=== PATIENT | female | born 1970 | race Caucasian/White ===

== ENCOUNTER 2022-08-05 12:48 | Observation (INO) | payer OTHER ==
[2022-08-05] MEDS ORDERED: ONDANSETRON 4 MG/2 ML VIAL IVPUSH ONE ×2 (13:28→17:53)
[2022-08-05] MEDS ORDERED: SODIUM CHLORIDE 1,000 ML IV STA ×3 (13:28→16:24)
[2022-08-05] MEDS ORDERED: ONDANSETRON 4 MG/2 ML VIAL ONE ×2 (13:45→17:59)
[2022-08-05 14:09] LABS: EPITHELIAL CELLS MODERATE /hpf
[2022-08-05 14:09] LABS: HEMATOCRIT 37.2 % (32.4-45.2); HEMOGLOBIN 12.4 G/dL (10.7-15.3); MCH 27.1 pg (25.7-33.7); MCHC 33.3 g/dl (32.0-36.0); MEAN CELL VOLUME 81.4 fl (80-96); MEAN PLT VOLUME 11.3 fl (7.5-11.1); PLATELET COUNT 121.3 10^3/uL (134-434); RBC 4.57 10^6/uL (3.60-5.2); RDW 14.9 % (11.6-15.6); WHITE BLOOD COUNT 7.3 10^3/uL (4.0-10.8)
[2022-08-05 14:16] LABS: ALBUMIN 3.6 g/dl (3.4-5.0); BILIRUBIN,TOTAL 0.6 mg/dl (0.2-1); CALCIUM 8.2 mg/dl (8.5-10); TOT PROT 6.7 g/dl (6.4-8.2)
[2022-08-05] MEDS ORDERED: POTASSIUM CHLORIDE ORAL LIQUID 20 MEQ/15 ML PO ONE (14:19)
[2022-08-05] MEDS ORDERED: INSULIN REGULAR HUMAN 100 UNITS/ML *VIAL SQ ONE (14:19)
[2022-08-05] MEDS ORDERED: POTASSIUM CHLORIDE ORAL LIQUID 20 MEQ/15 ML ONE (14:43)
[2022-08-05] MEDS ORDERED: INSULIN REGULAR HUMAN 100 UNITS/ML *VIAL ONE (14:44)
[2022-08-05] MEDS ORDERED: SULFAMETHOXAZOLE/TRIMETHOPRIM 800MG/160MG D.S. TABLET PO ONE (15:10)
[2022-08-05] MEDS ORDERED: SULFAMETHOXAZOLE/TRIMETHOPRIM 800MG/160MG D.S. TABLET ONE (15:18)
[2022-08-05] MEDS ORDERED: ACETAMINOPHEN 1000 MG/100 ML BAG IVPB ONE (16:24)
[2022-08-05] MEDS ORDERED: ACETAMINOPHEN INJECTION 100 ML IVPB ONE (16:34)
[2022-08-05] MEDS ORDERED: KETOROLAC TROMETHAMINE 15 MG/ML VIAL IVPUSH ONE (20:25)
[2022-08-05] MEDS: CEFTRIAXONE 1 GM in DEXTROSE 5%-WATER - 50 ML IVPB SCH (20:57)
[2022-08-05] MEDS: SODIUM CHLORIDE 1,000 ML IV SCH (20:57)
[2022-08-05 21:51] LABS: CALCIUM 8.1 mg/dl (8.5-10); CREATININE 0.7 mg/dl (0.55-1.3); MAGNESIUM 1.4 mg/dL (1.8-2.4); PHOSPHOROUS 2.7 mg/dl (2.5-4.9); POTASSIUM 3.9 mmol/L (3.5-5.1)
[2022-08-05] MEDS: INSULIN SLIDING SCALE (NOVOLOG) 1 VIAL SQ SCH (22:04)
[2022-08-05 22:16] VITALS: BMI 29.4
[2022-08-06] MEDS: ACETAMINOPHEN 1000 MG/100 ML BAG IVPB PRN ×3 (01:10→15:50)
[2022-08-06] MEDS: INSULIN SLIDING SCALE (NOVOLOG) 1 VIAL SQ SCH ×6 (02:00→21:13)
[2022-08-06 08:23] LABS: CALCIUM 7.6 mg/dl (8.5-10); CREATININE 0.7 mg/dl (0.55-1.3); POTASSIUM 3.5 mmol/L (3.5-5.1)
[2022-08-06 09:20] LABS: HEMATOCRIT 31.1 % (32.4-45.2); HEMOGLOBIN 10.4 GM/dL (10.7-15.3); MCH 26.1 pg (25.7-33.7); MCHC 33.3 g/dl (32.0-36.0); MEAN CELL VOLUME 78.6 fl (80-96); MEAN PLT VOLUME 10.2 fl (7.5-11.1); PLATELET COUNT 84 10^3/uL (134-434); RBC 3.96 M/mm3 (3.60-5.2); RDW 14.4 % (11.6-15.6); WHITE BLOOD COUNT 12.3 K/mm3 (4.0-10.0)
[2022-08-06] MEDS: CEFTRIAXONE 1 GM in DEXTROSE 5%-WATER - 50 ML IVPB SCH (10:13)
[2022-08-06] MEDS: ONDANSETRON 4 MG/2 ML VIAL IVPUSH PRN ×2 (15:55→21:07)
[2022-08-06] MEDS: SODIUM CHLORIDE 1,000 ML IV SCH (21:12)
[2022-08-07] MEDS: ACETAMINOPHEN 325 MG TABLET (FP) PO PRN ×4 (01:15→22:00)
[2022-08-07] MEDS ORDERED: IBUPROFEN 800 MG/8 ML IJ IVPB ONE (03:00)
[2022-08-07] MEDS: ONDANSETRON 4 MG/2 ML VIAL IVPUSH PRN ×3 (03:22→18:57)
[2022-08-07] MEDS: INSULIN SLIDING SCALE (NOVOLOG) 1 VIAL SQ SCH ×4 (06:42→22:44)
[2022-08-07 08:24] LABS: HEMATOCRIT 33.8 % (32.4-45.2); HEMOGLOBIN 11.1 G/dL (10.7-15.3); MCH 26.7 pg (25.7-33.7); MCHC 32.8 g/dl (32.0-36.0); MEAN CELL VOLUME 81.5 fl (80-96); MEAN PLT VOLUME 11.5 fl (7.5-11.1); PLATELET COUNT 91.2 10^3/uL (134-434); RBC 4.15 10^6/uL (3.60-5.2); RDW 15.6 % (11.6-15.6); WHITE BLOOD COUNT 8.2 10^3/uL (4.0-10.8)
[2022-08-07 08:38] LABS: CALCIUM 7.7 mg/dl (8.5-10); CREATININE 0.6 mg/dl (0.55-1.3); POTASSIUM 3.2 mmol/L (3.5-5.1)
[2022-08-07] MEDS ORDERED: CEFTRIAXONE 2 GM in DEXTROSE 5%-WATER 100 ML IVPB SCH (10:00)
[2022-08-07] MEDS ORDERED: POTASSIUM CHLORIDE TABS 10 MEQ TABLET.ER (FP) PO ONE (11:00)
[2022-08-07] MEDS: ERTAPENEM SODIUM 1 GM in SODIUM CHLORIDE 50 ML IVPB SCH (12:29)
[2022-08-07] MEDS ORDERED: MAGNESIUM SULF 50% (8.12 MEQ/2 ML-1 GM VIAL) IVPB ONE (16:36)
[2022-08-07] MEDS ORDERED: POTASSIUM CHLORIDE ORAL LIQUID 20 MEQ/15 ML PO ONE (16:37)
[2022-08-07] MEDS: SODIUM CHLORIDE 0.9%/KCL 20 MEQ/1,000 ML INFUS.BAG IV SCH (17:33)
[2022-08-07] MEDS: BANATROL PLUS POWDER PACKET PO SCH (22:44)
[2022-08-08] MEDS: ACETAMINOPHEN 325 MG TABLET (FP) PO PRN ×3 (04:33→22:40)
[2022-08-08] MEDS: ONDANSETRON 4 MG/2 ML VIAL IVPUSH PRN (06:41)
[2022-08-08] MEDS: BANATROL PLUS POWDER PACKET PO SCH ×4 (06:42→21:40)
[2022-08-08] MEDS: INSULIN SLIDING SCALE (NOVOLOG) 1 VIAL SQ SCH ×4 (06:42→21:39)
[2022-08-08 08:25] LABS: HEMATOCRIT 35.2 % (32.4-45.2); HEMOGLOBIN 11.6 G/dL (10.7-15.3); MCH 26.4 pg (25.7-33.7); MEAN PLT VOLUME 10.2 fl (7.5-11.1); PLATELET COUNT 99.8 10^3/uL (134-434); RDW 15.3 % (11.6-15.6); WHITE BLOOD COUNT 4.6 10^3/uL (4.0-10.8)
[2022-08-08 08:30] LABS: ALBUMIN 2.6 g/dl (3.4-5.0); BILIRUBIN,TOTAL 0.9 mg/dl (0.2-1); CALCIUM 7.7 mg/dl (8.5-10); CREATININE 0.6 mg/dl (0.55-1.3); MAGNESIUM 1.8 mg/dL (1.8-2.4); POTASSIUM 3.5 mmol/L (3.5-5.1); TOT PROT 5.7 g/dl (6.4-8.2)
[2022-08-08] MEDS ORDERED: KETOROLAC TROMETHAMINE 30 MG/1 ML VIAL IVPUSH PRN (09:01)
[2022-08-08] MEDS: MAGNESIUM OXIDE 400 MG TABLET (FP) PO SCH (09:21)
[2022-08-08] MEDS: KETOROLAC TROMETHAMINE 30 MG/1 ML VIAL IVPUSH PRN ×2 (09:21→17:37)
[2022-08-08] MEDS: ERTAPENEM SODIUM 1 GM in SODIUM CHLORIDE 50 ML IVPB SCH (09:21)
[2022-08-08] MEDS ORDERED: POTASSIUM CHLORIDE ORAL LIQUID 20 MEQ/15 ML PO ONE (12:47)
[2022-08-08] MEDS: SODIUM CHLORIDE 0.9%/KCL 20 MEQ/1,000 ML INFUS.BAG IV SCH (17:39)
[2022-08-09] MEDS: KETOROLAC TROMETHAMINE 30 MG/1 ML VIAL IVPUSH PRN ×3 (03:44→21:57)
[2022-08-09] MEDS: ONDANSETRON 4 MG/2 ML VIAL IVPUSH PRN (03:53)
[2022-08-09] MEDS: INSULIN SLIDING SCALE (NOVOLOG) 1 VIAL SQ SCH ×4 (06:55→21:59)
[2022-08-09] MEDS: ACETAMINOPHEN 325 MG TABLET (FP) PO PRN ×2 (06:55→18:29)
[2022-08-09] MEDS: BANATROL PLUS POWDER PACKET PO SCH ×3 (06:56→21:58)
[2022-08-09 08:54] LABS: CALCIUM 7.8 mg/dl (8.5-10); CREATININE 0.5 mg/dl (0.55-1.3); POTASSIUM 3.9 mmol/L (3.5-5.1)
[2022-08-09 09:05] LABS: HEMOGLOBIN 11.3 G/dL (10.7-15.3); MCH 26.8 pg (25.7-33.7); MCHC 33.3 g/dl (32.0-36.0); MEAN CELL VOLUME 80.6 fl (80-96); MEAN PLT VOLUME 10.4 fl (7.5-11.1); RBC 4.22 10^6/uL (3.60-5.2); RDW 15.4 % (11.6-15.6); WHITE BLOOD COUNT 4.3 10^3/uL (4.0-10.8)
[2022-08-09] MEDS: ERTAPENEM SODIUM 1 GM in SODIUM CHLORIDE 50 ML IVPB SCH (09:38)
[2022-08-09] MEDS: MAGNESIUM OXIDE 400 MG TABLET (FP) PO SCH (09:38)
[2022-08-09] MEDS: SODIUM CHLORIDE 1 GM TABLET PO SCH ×2 (09:38→21:57)
[2022-08-10] MEDS: ACETAMINOPHEN 325 MG TABLET (FP) PO PRN (05:57)
[2022-08-10] MEDS: INSULIN SLIDING SCALE (NOVOLOG) 1 VIAL SQ SCH ×4 (06:56→22:20)
[2022-08-10] MEDS: BANATROL PLUS POWDER PACKET PO SCH ×3 (06:57→22:21)
[2022-08-10 07:56] LABS: HEMATOCRIT 36.5 % (32.4-45.2); HEMOGLOBIN 11.9 G/dL (10.7-15.3); MCH 26.3 pg (25.7-33.7); MCHC 32.5 g/dl (32.0-36.0); MEAN CELL VOLUME 80.9 fl (80-96); MEAN PLT VOLUME 10.1 fl (7.5-11.1); PLATELET COUNT 124.8 10^3/uL (134-434); RBC 4.51 10^6/uL (3.60-5.2); RDW 15.2 % (11.6-15.6); WHITE BLOOD COUNT 6.4 10^3/uL (4.0-10.8)
[2022-08-10 08:12] LABS: ALBUMIN 2.7 g/dl (3.4-5.0); BILIRUBIN,TOTAL 0.7 mg/dl (0.2-1); CALCIUM 8.3 mg/dl (8.5-10); CREATININE 0.6 mg/dl (0.55-1.3); MAGNESIUM 1.8 mg/dL (1.8-2.4); POTASSIUM 4.2 mmol/L (3.5-5.1)
[2022-08-10] MEDS: MAGNESIUM OXIDE 400 MG TABLET (FP) PO SCH (09:10)
[2022-08-10] MEDS: ERTAPENEM SODIUM 1 GM in SODIUM CHLORIDE 50 ML IVPB SCH (09:19)
[2022-08-10] MEDS: SODIUM CHLORIDE 1 GM TABLET PO SCH ×2 (09:19→22:20)
[2022-08-10 09:27] LABS: PLATELET ESTIMATE SLT DECREASE
[2022-08-10] MEDS: KETOROLAC TROMETHAMINE 30 MG/1 ML VIAL IVPUSH PRN (20:08)
[2022-08-11] MEDS: ACETAMINOPHEN 325 MG TABLET (FP) PO PRN (06:30)
[2022-08-11] MEDS: INSULIN SLIDING SCALE (NOVOLOG) 1 VIAL SQ SCH ×2 (06:31→11:37)
[2022-08-11] MEDS: BANATROL PLUS POWDER PACKET PO SCH ×2 (06:31→15:09)
[2022-08-11 08:44] LABS: BILIRUBIN,TOTAL 0.7 mg/dl (0.2-1); CALCIUM 8.5 mg/dl (8.5-10); CREATININE 0.6 mg/dl (0.55-1.3); POTASSIUM 3.7 mmol/L (3.5-5.1); TOT PROT 6.8 g/dl (6.4-8.2)
[2022-08-11 08:59] VITALS: RESP 18
[2022-08-11 09:01] LABS: ACTIVATED PTT 30.7 SECONDS (25.2-36.5); INR 1.01 (0.83-1.09); PROTHROMBIN TIME (PATIENT) 11.6 SEC (9.7-13.0)
[2022-08-11 09:14] LABS: BASO % 0.6 % (0-2.0); HEMATOCRIT 33.5 % (32.4-45.2); HEMOGLOBIN 11.3 GM/dL (10.7-15.3); LYMPH % 23.7 % (8-40); MCH 26.2 pg (25.7-33.7); MCHC 33.8 g/dl (32.0-36.0); MEAN CELL VOLUME 77.4 fl (80-96); MEAN PLT VOLUME 8.8 fl (7.5-11.1); MONO % 9.2 % (3.8-10.2); NEUT % 64.5 % (42.8-82.8); PLATELET COUNT 166 10^3/uL (134-434); RBC 4.33 M/mm3 (3.60-5.2); RDW 14.8 % (11.6-15.6)
[2022-08-11] MEDS: MAGNESIUM OXIDE 400 MG TABLET (FP) PO SCH (09:33)
[2022-08-11] MEDS: ERTAPENEM SODIUM 1 GM in SODIUM CHLORIDE 50 ML IVPB SCH (09:33)
[2022-08-11] MEDS: SODIUM CHLORIDE 1 GM TABLET PO SCH (09:40)
[2022-08-11 12:57] VITALS: BP 127/79; PULSE 79; TEMP 98.4
== END 2022-08-11 16:14 | disposition home or self-care (01) ==
LOC: FER 12:48 → FM/S 18:00 → INTOOBSV 18:00
PROVIDERS: ADMIT Internal Medicine; ATTEND Family Medicine
PROC: 3E033GC Introduction of Other Therapeutic Substance into Peripheral Vein, Percutaneous Approach (ICD-10-PCS; principal; 2022-08-05)
PROC: 3E03329 Introduction of Other Anti-infective into Peripheral Vein, Percutaneous Approach (ICD-10-PCS; 2022-08-05)
PROC: 3E0337Z Introduction of Electrolytic and Water Balance Substance into Peripheral Vein, Percutaneous Approach (ICD-10-PCS; 2022-08-05)
PROC: 3E033NZ Introduction of Analgesics, Hypnotics, Sedatives into Peripheral Vein, Percutaneous Approach (ICD-10-PCS; 2022-08-05)
PROC: 3E033GC Introduction of Other Therapeutic Substance into Peripheral Vein, Percutaneous Approach (ICD-10-PCS; 2022-08-05)
PROC: 3E013VG Introduction of Insulin into Subcutaneous Tissue, Percutaneous Approach (ICD-10-PCS; 2022-08-05)
DX: N12 Tubulo-interstitial nephritis, not specified as acute or chronic (principal); N39.0 Urinary tract infection, site not specified; B96.29 Other Escherichia coli [E. coli] as the cause of diseases classified elsewhere; E11.65 Type 2 diabetes mellitus with hyperglycemia; E87.1 Hypo-osmolality and hyponatremia; E87.6 Hypokalemia; I10 Essential (primary) hypertension; D69.6 Thrombocytopenia, unspecified; N13.30 Unspecified hydronephrosis; R94.5 Abnormal results of liver function studies; R74.01 Elevation of levels of liver transaminase levels
CPT/HCPCS: 0241U-QW; 36415; 74176-TC; 76700-TC; 76775-TC; 80048; 80053; 81003; 81015; 82436; 82533; 82962; 83735; 83930; 83935; 84100; 84133; 84300; 84443; 85025; 85027; 85610; 85730; 87040; 87086; 87186; 93005; 96361; 96365; 96366; 96372; 96375; 96376; 99285-25; G0378

== ENCOUNTER 2023-02-17 19:15 | Emergency (ER) | payer OTHER ==
[2023-02-17 19:29] VITALS: BP 172/96; PULSE 66; RESP 16; TEMP 98.4; BMI 28.3
[2023-02-17 19:39] LABS: HEMOGLOBIN 12.8 G/dL (10.7-15.3); MCH 25.6 pg (25.7-33.7); MCHC 32.1 g/dl (32.0-36.0); MEAN CELL VOLUME 79.6 fl (80-96); MEAN PLT VOLUME 10.7 fl (7.5-11.1); PLATELET COUNT 170.9 10^3/uL (134-434); RBC 5.02 10^6/uL (3.60-5.2); RDW 16.3 % (11.6-15.6); WHITE BLOOD COUNT 5.3 10^3/uL (4.0-10.8)
[2023-02-17 19:45] LABS: INR 0.97 (0.83-1.09); PROTHROMBIN TIME (PATIENT) 11.3 SEC (9.7-13.0)
== END 2023-02-17 20:44 | disposition home or self-care (01) ==
LOC: FER 19:15
DX: S49.91XA Unspecified injury of right shoulder and upper arm, initial encounter (principal); X58.XXXA Exposure to other specified factors, initial encounter
CPT/HCPCS: 36415; 85027; 85610; 85730; 99283-25

== ENCOUNTER 2023-06-13 10:35 | Emergency (ER) | payer OTHER ==
[2023-06-13 10:52] VITALS: BP 145/94; PULSE 72; RESP 18; TEMP 98; BMI 25.6
[2023-06-13] MEDS: SODIUM CHLORIDE 1,000 ML IV STA (11:20)
[2023-06-13] MEDS ORDERED: ACETAMINOPHEN INJECTION 100 ML IVPB ONE (11:20)
[2023-06-13] MEDS ORDERED: ONDANSETRON 4 MG/2 ML VIAL ONE (11:20)
[2023-06-13] MEDS: ONDANSETRON 4 MG/2 ML VIAL IVPUSH ONE (11:20)
[2023-06-13] MEDS: ACETAMINOPHEN 1000 MG/100 ML BAG IVPB ONE (11:30)
[2023-06-13 11:31] LABS: MCH 26.2 pg (25.7-33.7); MCHC 32.6 g/dl (32.0-36.0); MEAN CELL VOLUME 80.4 fl (80-96); MEAN PLT VOLUME 9.9 fl (7.5-11.1); PLATELET COUNT 167.7 10^3/uL (134-434); RBC 4.97 10^6/uL (3.60-5.2); RDW 15.3 % (11.6-15.6); WHITE BLOOD COUNT 9.5 10^3/uL (4.0-10.8)
[2023-06-13 11:37] LABS: PLATELET ESTIMATE ADEQUATE
[2023-06-13 11:40] LABS: ALBUMIN 4.1 g/dl (3.4-5.0); BILIRUBIN,TOTAL 0.7 mg/dl (0.2-1); CALCIUM 8.9 mg/dl (8.5-10.1); CREATININE 0.6 mg/dl (0.6-1.3); EPITHELIAL CELLS 0-5 /hpf; POTASSIUM 3.8 mmol/L (3.5-5.1); TOT PROT 7.1 g/dl (6.4-8.2)
[2023-06-13] MEDS ORDERED: cefTRIAXone SODIUM 1 GM VIAL ONE (11:57)
[2023-06-13] MEDS: CEFTRIAXONE 1 GM in DEXTROSE 5%-WATER - 100 ML IVPB ONE (12:04)
[2023-06-13 13:27] LABS: THROAT:GRP A STREP NOT DETECTED (NOTDETECTED)
== END 2023-06-13 13:45 | disposition home or self-care (01) ==
LOC: FER 10:35
PROC: 3E03329 Introduction of Other Anti-infective into Peripheral Vein, Percutaneous Approach (ICD-10-PCS; principal; 2023-06-13)
PROC: 3E033GC Introduction of Other Therapeutic Substance into Peripheral Vein, Percutaneous Approach (ICD-10-PCS; 2023-06-13)
PROC: 3E033GC Introduction of Other Therapeutic Substance into Peripheral Vein, Percutaneous Approach (ICD-10-PCS; 2023-06-13)
DX: R10.9 Unspecified abdominal pain (principal); R11.2 Nausea with vomiting, unspecified; R50.9 Fever, unspecified; N39.0 Urinary tract infection, site not specified; Z20.822 Contact with and (suspected) exposure to COVID-19
CPT/HCPCS: 0241U-QW; 36415; 80053; 81003; 81015; 85027; 87086; 87186; 87651; 99284-25; J0131

== ENCOUNTER 2023-09-18 09:59 | Emergency (ER) | payer OTHER ==
[2023-09-18 10:08] VITALS: BP 105/69; PULSE 100; RESP 18; TEMP 98.4; BMI 24.5
[2023-09-18] MEDS ORDERED: KETOROLAC TROMETHAMINE 15 MG/ML VIAL ONE (10:37)
[2023-09-18] MEDS: SODIUM CHLORIDE 0.9% 500 ML INFUS.BAG IV ONE (10:42)
[2023-09-18] MEDS: KETOROLAC TROMETHAMINE 15 MG/ML VIAL IVPUSH ONE (10:42)
[2023-09-18 10:54] LABS: HEMATOCRIT 38.4 % (32.4-45.2); HEMOGLOBIN 12.6 G/dL (10.7-15.3); MCH 26.1 pg (25.7-33.7); MCHC 32.7 g/dl (32.0-36.0); MEAN CELL VOLUME 79.8 fl (80-96); MEAN PLT VOLUME 9.9 fl (7.5-11.1); PLATELET COUNT 150.4 10^3/uL (134-434); RBC 4.81 10^6/uL (3.60-5.2); RDW 15.9 % (11.6-15.6); WHITE BLOOD COUNT 7.4 10^3/uL (4.0-10.8)
[2023-09-18 11:01] LABS: BILIRUBIN,TOTAL 0.7 mg/dl (0.2-1); CALCIUM 9.1 mg/dl (8.5-10.1); CREATININE 0.7 mg/dl (0.6-1.3); POTASSIUM 3.9 mmol/L (3.5-5.1); TOT PROT 6.7 g/dl (6.4-8.2)
[2023-09-18 11:30] LABS: EPITHELIAL CELLS 0-5 /hpf
[2023-09-18 11:41] LABS: PLATELET ESTIMATE ADEQUATE
[2023-09-18] MEDS ORDERED: SULFAMETHOXAZOLE/TRIMETHOPRIM 800MG/160MG D.S. TABLET ONE (13:15)
[2023-09-18] MEDS: SULFAMETHOXAZOLE/TRIMETHOPRIM 800MG/160MG D.S. TABLET PO ONE (13:26)
== END 2023-09-18 13:27 | disposition home or self-care (01) ==
LOC: FER 09:59
PROC: 3E0333Z Introduction of Anti-inflammatory into Peripheral Vein, Percutaneous Approach (ICD-10-PCS; principal; 2023-09-18)
DX: N12 Tubulo-interstitial nephritis, not specified as acute or chronic (principal); R10.30 Lower abdominal pain, unspecified; R68.83 Chills (without fever)
CPT/HCPCS: 36415; 74176-TC; 80053; 81003; 81015; 81025; 82962; 85027; 87086; 87186; 99284-25

== ENCOUNTER 2023-12-01 17:19 | Emergency (ER) | payer OTHER ==
[2023-12-01 17:28] VITALS: BP 140/97; PULSE 82; RESP 18; TEMP 98.6; BMI 23.8
[2023-12-01] MEDS ORDERED: ACETAMINOPHEN 325 MG TABLET (FP) ONE (17:54)
[2023-12-01] MEDS: ACETAMINOPHEN 500 MG TABLET (FP) PO ONE (17:57)
== END 2023-12-01 21:12 | disposition home or self-care (01) ==
LOC: FER 17:19
PROC: 0HQNXZZ Repair Left Foot Skin, External Approach (ICD-10-PCS; principal; 2023-12-01)
DX: S91.312A Laceration without foreign body, left foot, initial encounter (principal); M79.89 Other specified soft tissue disorders; W20.8XXA Other cause of strike by thrown, projected or falling object, initial encounter
CPT/HCPCS: 12001-25; 73630-TC-LT; 99283-25

== ENCOUNTER 2024-11-24 08:41 | Day surgery (SDC) | payer OTHER ==
[2024-11-21 15:33] VITALS: BMI 24.7
[2024-11-24] MEDS ORDERED: PROPOFOL 60 ML ONE (09:54)
[2024-11-24 10:31] VITALS: TEMP 97.8
[2024-11-24 10:47] VITALS: BP 112/70; PULSE 74; RESP 19
== END 2024-11-24 10:50 | disposition home or self-care (01) ==
LOC: FASU-ENDO 08:41
PROVIDERS: ATTEND Internal Medicine Gastroenterology
PROC: 0DB98ZX Excision of Duodenum, Via Natural or Artificial Opening Endoscopic, Diagnostic (ICD-10-PCS; 2024-11-24)
PROC: 0DB78ZX Excision of Stomach, Pylorus, Via Natural or Artificial Opening Endoscopic, Diagnostic (ICD-10-PCS; 2024-11-24)
PROC: 0DB68ZX Excision of Stomach, Via Natural or Artificial Opening Endoscopic, Diagnostic (ICD-10-PCS; 2024-11-24)
PROC: 0DJD8ZZ Inspection of Lower Intestinal Tract, Via Natural or Artificial Opening Endoscopic (ICD-10-PCS; principal; 2024-11-24 09:46)
DX: Z12.11 Encounter for screening for malignant neoplasm of colon (principal); K64.0 First degree hemorrhoids; K29.50 Unspecified chronic gastritis without bleeding; B96.81 Helicobacter pylori [H. pylori] as the cause of diseases classified elsewhere; K31.89 Other diseases of stomach and duodenum
CPT/HCPCS: 82962; 88305-TC; 88342-TC